=== PATIENT | female | born 1950 | race Caucasian/White ===

== ENCOUNTER 2019-02-26 20:39 | Inpatient (IN) | payer OTHER, MEDICARE ==
[~2019-02-26] VITALS: Ht 160 cm; Wt 61.2 kg
[2019-02-26 20:39] VITALS: BP_SYST 153
--- NOTE | 2019-02-26 20:40 | NUR ---
Placed in room 2 . Placed on hall monitor, blood pressure machine and pulse oximeter. To gown for exam. Side rails up.
--- NOTE | 2019-02-26 20:41 | NUR ---
Pt started on O2 via NC 2L. Tolerated well. Will cont. to monitor.
--- NOTE | 2019-02-26 20:45 | NUR ---
Pt came to the ED for 5 day hx of cough and 2 day history of SOB. Reports pt used predisone and inhaler at home with no relief. Denies n/v/d or fever. No other complaints/injuries noted. Will cont. to piero.
--- NOTE | 2019-02-26 20:52 | NUR ---
ER at bedside examining patient.
[2019-02-26] MEDS ORDERED: ALBUTEROL SULFATE 0.083% 2.5 MG/3 ML VIAL.NEB INH ONE ×2 (21:00→23:30)
[2019-02-26] MEDS ORDERED: LEVOFLOXACIN 500 MG/D5W 100 ML IV ONE (21:00)
[2019-02-26] MEDS ORDERED: IPRATROPIUM BROM 0.5 MG/2.5 ML VIAL.NEB (ATROVENT) INH ONE ×2 (21:00→23:30)
[2019-02-26] MEDS ORDERED: methylPREDNISolone SOD SUCC/PF 62.5 MG/ML VIAL IVP ONE (21:00)
[2019-02-26 21:27] LABS: BASOPHILS % (AUTO) 0.3 % (0.0-2.0); EOSINOPHILS % (AUTO) 0.1 % (0.0-4.0); HEMATOCRIT 43.5 % (36-48); HEMOGLOBIN 14.7 g/dL (12.0-16.0); LYMPHOCYTES % (AUTO) 9.3 % (20.5-51.5); MEAN CORPUSCULAR HEMOGLOBIN 34 pg (27-31); MEAN CORPUSCULAR HGB CONC 34 % (32-36); MEAN CORPUSCULAR VOLUME 102 fL (79.0-98.0); MONOCYTES # (AUTO) 0.8 K/uL (0.0-1.0); MONOCYTES % (AUTO) 7.4 % (1.7-9.3); NEUTROPHILS # (AUTO) 9.2 K/uL (1.8-7.7); NEUTROPHILS % (AUTO) 82.9 % (40.0-70.0); PLATELET COUNT (AUTO) 291 K/uL (130-430); RED BLOOD CELL COUNT(AUTO) 4.28 MIL/uL (4.2-6.2); RED CELL DISTRIBUTION WIDTH 13.9 % (9.0-15.0); WHITE BLOOD COUNT (AUTO) 11.1 K/uL (4.8-10.8)
[2019-02-26 21:36] LABS: ANION GAP 8 (5-15); CALCIUM 8.8 mg/dL (8.4-11.0); CHLORIDE 99 mmol/L (98-107); CREATININE 1.15 mg/dL (0.55-1.30); GFR AFRICAN AMERICAN 60 mL/min (>90); GLUCOSE 105 mg/dL (70-99); POTASSIUM 3.4 mmol/L (3.5-5.1); SODIUM SERUM 136 mmol/L (136-145); UREA NITROGEN, BLOOD 18 mg/dL (8-21)
[2019-02-26 21:41] LABS: PROTHROMBIN TIME 9.9 SECS (9.5-12.5)
[2019-02-26 21:45] LABS: ALANINE AMINOTRANSFERASE 38 U/L (12-78); ALBUMIN 3.4 g/dL (3.4-4.8); ASPARTATE AMINOTRANSFERASE 34 U/L (10-37); TOTAL BILIRUBIN 0.3 mg/dL (0.0-1.0)
--- NOTE | 2019-02-26 22:00 | NUR ---
Pt states, "I feel a lot better, however I feel like there's something stuck in my throat." O2 saturation is 96%. RR is 18. No signs of acute distress. Will cont. to monitor.
--- NOTE | 2019-02-26 23:29 | NUR ---
Pt states that she feels like shes having a hard time breathing. States she would like another breathing TX.
[2019-02-26] MEDS ORDERED: BUDE6HFA INH (23:43)
[2019-02-26] MEDS ORDERED: OXYM15MI9 NS (23:43)
[2019-02-26] MEDS ORDERED: P-EP-92 PO (23:43)
[2019-02-26] MEDS ORDERED: IPRA4AER INH (23:43)
--- NOTE | 2019-02-26 23:43 | NUR ---
Medication reconciliation completed with information provided by patient. Any prior medication reconciliation on file was reviewed and corrected.
--- NOTE | 2019-02-26 23:50 | NUR ---
RT at bedside for breathing TX. Tolerated well. Will cont. to monitor.
[2019-02-27] MEDS ORDERED: LevALBUTEROL HCL 1.25 MG/0.5 ML *CONC.* VIAL.NEB (XOPENEX CONC.) INH SCH
--- NOTE | 2019-02-27 00:16 | NUR ---
Patient will be admitted to care of Dr. Salinas. Admitted to Tele unit. Will go to room 103B. Belongings list completed. Complete and up to date summary report printed. SBAR report to be given at bedside with opportunity for questions.
--- NOTE | 2019-02-27 00:30 | NUR ---
ADMISSION NOTE Received patient from ER via gurney. Patient admitted with diagnosis of DIFFICULTY BREATHING. Patient is awake, alert, oriented X 4. Patient oriented to hospital room, call light, toileting, pain management and safety-teach back done. Patient informed that RAVI (RAFFAELE) will be HER nurse and that their room number is 103B. Personal belongings checked and Belongings List documented. Call light within reach.
--- NOTE | 2019-02-27 00:30 | NUR ---
Transfer to Tele via ACLS protocol. Licensed nurse present. IV present no signs or symptoms of infiltration.
--- NOTE | 2019-02-27 00:45 | NUR ---
ADMITTED A 68 YEAR OLD FEMALE WHO WAS BROUGHT IN FROM THE EMERGENCY ROOM VIA GURNEY WITH ADMITTING DIAGNOSES OF COPD EXACERBATION,PNEUMONIA UNDER THE SERVICE OF . PT.IS ALERT,ORIENTED. AFEBRILE, NOT IN ACUTE DITRESS. DENIES PAIN BUT VERBALIZED STILL SHORT OF BREATH. BREATHING EQUAL AND MILDLY LABORED. (+) SUPRACLAVICULAR RETRACTIONS. (+) WHEEZING BILATERALLY. SINUS TACHYCARDIA @ 120/MINUTE ON THE MONITOR. ZOSYN IVPB ORDERED BUT ALLERGIC TO PCN. PT.ALSO IS REQUESTING FOR COUGH MEDICATION. WILL CALL ATTENDING MD. WILL CLOSELY MONITOR. NEEDS ATTENDED.
[2019-02-27 00:47] VITALS: BP_SYST 144
[2019-02-27] MEDS: KCL 20 mEq in D5/0.45NS 1000mL 1,000 ML IV SCH ×3 (01:07→22:32)
--- NOTE | 2019-02-27 01:07 | NUR ---
IV FLUID D5 1/2 NS + KCL 20 MEQ AT 75 ML/HR. STARTED.
[2019-02-27] MEDS ORDERED: KCL 20 mEq in D5/0.45NS 1000mL 1,000 ML IV ONE (01:15)
[2019-02-27 01:29] LABS: BILIRUBIN,URINE NEGATIVE (NEGATIVE); BLOOD, URINE 1+ (NEGATIVE); CLARITY/URINE CLEAR (CLEAR); COLOR,URINE YELLOW (YELLOW); GLUCOSE,URINE NEGATIVE (NEGATIVE); KETONES,URINE NEGATIVE (NEGATIVE); LEUKOCYTE ESTERASE ,URINE NEGATIVE (NEGATIVE); NITRITE, URINE NEGATIVE (NEGATIVE); PROTEIN URINE 1+ (NEGATIVE); UROBILINOGEN,URINE 0.2 (0.2-1.0)
--- NOTE | 2019-02-27 01:34 | NUR ---
PAGED PAGED DR. GRIFFIN FOR ORDERS VIA PAGER ([phone])
[2019-02-27 01:37] VITALS: BP_SYST 144
[2019-02-27 01:55] LABS: BACTERIA,URINE FEW /HPF (None Seen); WBC,URINE 0-3 /HPF (0-3)
--- NOTE | 2019-02-27 02:00 | NUR ---
PAGED x2 SECOND PAGE SENT TO DR. GRIFFIN
--- NOTE | 2019-02-27 03:01 | NUR ---
PAGED x3 THIRD PAGE SENT TO DR. GRIFFIN
--- NOTE | 2019-02-27 03:48 | NUR ---
PT. AGAIN COMPLAINED OF SOB,AND NAGGING COUGH. CONTACTED VIA PAGER. AWAITING CALL BACK FROM .
[2019-02-27] MEDS: methylPREDNISolone SOD SUCC/PF 62.5 MG/ML VIAL IVP SCH ×4 (05:57→17:40)
--- NOTE | 2019-02-27 05:57 | NUR ---
AWAKE, VERBALIZED IMPROVED SOB. STILL NO CALL BACK FROM . DUE MEDICATION GIVEN.
[2019-02-27] MEDS ORDERED: PIPERACILLIN/TAZO 3.375 GM in NS 50 ML IV SCH ×3 (06:00)
--- NOTE | 2019-02-27 07:07 | NUR ---
ENDORSED CARE TO PAIGE SHIN STABLE.
--- NOTE | 2019-02-27 07:15 | NUR ---
OPENING NOTE PT AWAKE AND ALERT IN BED. NO ACUTE DISTRESS NOTED. NASAL CANNULA RUNNING ORDERED AT 2L. NO REDNESS AT NASAL CANNULA SITE. TOLERATING WELL. O2 AT 96%. ALL NEEDS MET. CALL LIGHT IN REACH. FALL AND ASPIRATION PRECAUTIONS IN PLACE. CONTINUE TO MONITOR.
[2019-02-27 07:47] LABS: BASOPHILS % (AUTO) 0.3 % (0.0-2.0); HEMATOCRIT 42.1 % (36-48); HEMOGLOBIN 14.1 g/dL (12.0-16.0); LYMPHOCYTES # (AUTO) 0.4 K/uL (1.0-5.5); LYMPHOCYTES % (AUTO) 3.2 % (20.5-51.5); MEAN CORPUSCULAR HEMOGLOBIN 34 pg (27-31); MEAN CORPUSCULAR HGB CONC 33 % (32-36); MEAN CORPUSCULAR VOLUME 103 fL (79.0-98.0); MONOCYTES # (AUTO) 0.2 K/uL (0.0-1.0); NEUTROPHILS # (AUTO) 11.5 K/uL (1.8-7.7); NEUTROPHILS % (AUTO) 94.5 % (40.0-70.0); PLATELET COUNT (AUTO) 280 K/uL (130-430); RED CELL DISTRIBUTION WIDTH 13.8 % (9.0-15.0); WHITE BLOOD COUNT (AUTO) 12.2 K/uL (4.8-10.8)
[2019-02-27 08:00] VITALS: BP_SYST 150
[2019-02-27 09:05] LABS: ALBUMIN 3.3 g/dL (3.4-4.8); CREATININE 1.17 mg/dL (0.55-1.30); POTASSIUM 3.7 mmol/L (3.5-5.1); TOTAL BILIRUBIN 0.2 mg/dL (0.0-1.0)
--- NOTE | 2019-02-27 09:40 | NUR ---
SEEN BY DR. GRIFFIN AT BEDSIDE.
[2019-02-27] MEDS ORDERED: P-EPHED SUL/LORATADINE TAB.SR.12H PO ONE (09:45)
--- NOTE | 2019-02-27 09:49 | NUR ---
RT AT BEDSIDE. PT RECEIVING BREATHING TREATMENT.
[2019-02-27] MEDS: LevALBUTEROL HCL 1.25 MG/0.5 ML *CONC.* VIAL.NEB (XOPENEX CONC.) INH PRN (10:22)
[2019-02-27] MEDS: ALBUTEROL SULFATE 0.083% 2.5 MG/3 ML VIAL.NEB INH SCH ×4 (11:00→23:20)
[2019-02-27 11:09] VITALS: BP_SYST 129
--- NOTE | 2019-02-27 12:04 | NUR ---
ROUTINE MEDICATIONS MEDS ADMINISTERED ORDERED PER MD. EDUCATION GIVEN. TOLERATED WELL. NO ACUTE DISTRESS NOTED. ALL NEEDS MET. CALL LIGHT IN REACH. FALL AND ASPIRATION PRECAUTIONS IN PLACE. CONTINUE TO MONITOR.
--- NOTE | 2019-02-27 14:00 | NUR ---
ROUNDS PT AWAKE AND ALERT IN BED. NO ACUTE DISTRESS NOTED. ALL NEEDS MET. CALL LIGHT IN REACH. FALL AND ASPIRATION PRECAUTIONS IN PLACE. CONTINUE TO MONITOR.
[2019-02-27 15:35] VITALS: BP_SYST 135
--- NOTE | 2019-02-27 17:44 | NUR ---
ROUTINE MEDS ROUTINE MEDS ADMINISTERED ORDERED BY MD. EDUCATION GIVEN. TOLERATED WELL. NO ACUTE DISTRESS NOTED. FALL AND ASPIRATION PRECAUTIONS IN PLACE. ALL NEEDS MET. CALL LIGHT IN REACH. CONTINUE TO MONITOR.
[2019-02-27] MEDS ORDERED: IPRATROPIUM/ALBUTEROL SULFATE 3 ML AMPUL.NEB (DUONEB) INH SCH (19:00)
--- NOTE | 2019-02-27 19:01 | NUR ---
CLOSING NOTE PT AWAKE AND ALERT IN BED. NO ACUTE DISTRESS NOTED. NONLABORED BREATHING NOTED. NASAL CANULA INTACT, RUNNING AT 2L ORDERED. NO REDNESS NOTED AROUND NASAL CANNULA. IV LINE INTACT AND PATENT, NO SIGNS OF INFILTRATION. FLUIDS RUNNING ORDERED PER MD. TOLERATING WELL. BED IN LOWEST AND LOCKED POSITION. ALL NEEDS MET. CALL LIGHT IN REACH. FALL AND ASPIRATION PRECAUTIONS IN PLACE. WILL ENDORSE TO NOC NURSE.
--- NOTE | 2019-02-27 19:30 | NUR ---
Opening Note Received patient awake, AOx4, resting in bed. No s/sx of distress. Presently on 2L NC. IVF infusing via IV RAC. Bed is locked in lowest position, side rails up 2x and instructed on use of call light. She refused bed alarm; stating she gets up frequently and sits in bed, uses bed side commode. Updated board and reviewed plan of care.
[2019-02-27] MEDS: BUDESONIDE 0.5 MG/2 ML AMPUL.NEB INH SCH (19:50)
[2019-02-27 20:00] VITALS: BP_SYST 152
--- NOTE | 2019-02-27 20:52 | NUR ---
Elfego Coy s/w Treasure
[2019-02-27] MEDS ORDERED: IPRATROPIUM/ALBUTEROL SULFATE 120 PUFFS/4 GM INH INH SCH (21:00)
[2019-02-27] MEDS ORDERED: BUDESONIDE/FORMOTEROL 160-4.5 mCg, 6 GM INHALER INH SCH (21:00)
--- NOTE | 2019-02-27 21:32 | NUR ---
Second call for Dr. Coy s/w Autumn
--- NOTE | 2019-02-27 21:35 | NUR ---
Dr. Coy s/w Dr. Coy and informed patient is requesting a sleeping pill, he did not provide order d/t patient diagnosis. He did place order for pulmonary consult w/ Dr. Vasquez.
[2019-02-27] MEDS: LEVOFLOXACIN 250 MG/D5W 50 ML IV SCH (22:31)
[2019-02-27] MEDS: guaiFENesin/DEXTROMETHORPHAN 10 ML UDC PO PRN (22:31)
[2019-02-27] MEDS: P-EPHED SUL/LORATADINE TAB.SR.12H PO SCH (22:31)
[2019-02-27] MEDS: ENOXAPARIN SODIUM 40 MG/0.4 ML SYRINGE SUBCUT SCH (22:34)
[2019-02-28 00:15] VITALS: BP_SYST 139
[2019-02-28] MEDS: methylPREDNISolone SOD SUCC/PF 62.5 MG/ML VIAL IVP SCH ×4 (00:30→17:43)
--- NOTE | 2019-02-28 00:42 | NUR ---
CONSULTATION PAGED/CALLED Reason for Consultation: COPD, PNA Person Who was Notified: MAHENDRA Consulting Physician: DR. BOWIE Financial Analyst Accountant Specialty: PULMONARY Ordering Physician: DR. ELKINS
[2019-02-28] MEDS: ACETAMINOPHEN 325 MG TABLET PO PRN ×3 (01:55→21:00)
[2019-02-28] MEDS: ALBUTEROL SULFATE 0.083% 2.5 MG/3 ML VIAL.NEB INH SCH ×6 (02:00→23:27)
[2019-02-28] MEDS: guaiFENesin/DEXTROMETHORPHAN 10 ML UDC PO PRN ×3 (03:28→20:59)
--- NOTE | 2019-02-28 03:31 | NUR ---
Coughing Patient is awake and coughing. She was offered Robitussin and agreed to take dose. Will continue to monitor.
--- NOTE | 2019-02-28 06:45 | NUR ---
closing note Patient given due medication, solumedrol. Needs met throughout shift, Presently stable, will endorse care to incoming shift.
--- NOTE | 2019-02-28 07:10 | NUR ---
Opening Note Received bedside report from endorsing RN for continuation of care. Received patient awake in bed, denies any SOB or pain. No signs or symptoms of acute distress noted. Bed locked in lowest position, bed alarm on, and call light within reach. Education provided on use of call light and patient verbalized understanding. Fall and safety precautions in place.
[2019-02-28] MEDS: BUDESONIDE 0.5 MG/2 ML AMPUL.NEB INH SCH ×2 (07:13→19:42)
[2019-02-28 08:00] VITALS: BP_SYST 145
[2019-02-28 08:03] LABS: BASOPHILS % (AUTO) 0.2 % (0.0-2.0); HEMATOCRIT 41.6 % (36-48); HEMOGLOBIN 13.9 g/dL (12.0-16.0); LYMPHOCYTES % (AUTO) 7.5 % (20.5-51.5); MEAN CORPUSCULAR HEMOGLOBIN 34 pg (27-31); MEAN CORPUSCULAR HGB CONC 34 % (32-36); MEAN CORPUSCULAR VOLUME 102 fL (79.0-98.0); MONOCYTES # (AUTO) 0.9 K/uL (0.0-1.0); MONOCYTES % (AUTO) 6.7 % (1.7-9.3); NEUTROPHILS # (AUTO) 11.2 K/uL (1.8-7.7); NEUTROPHILS % (AUTO) 85.6 % (40.0-70.0); PLATELET COUNT (AUTO) 293 K/uL (130-430); RED BLOOD CELL COUNT(AUTO) 4.07 MIL/uL (4.2-6.2); RED CELL DISTRIBUTION WIDTH 14.1 % (9.0-15.0); WHITE BLOOD COUNT (AUTO) 13.1 K/uL (4.8-10.8)
[2019-02-28 08:32] LABS: CALCIUM 8.1 mg/dL (8.4-11.0); CREATININE 0.97 mg/dL (0.55-1.30); POTASSIUM 3.7 mmol/L (3.5-5.1)
[2019-02-28] MEDS: P-EPHED SUL/LORATADINE TAB.SR.12H PO SCH ×2 (10:05→20:57)
--- NOTE | 2019-02-28 10:15 | NUR ---
Patient sitting up in bed, denies any pain. No signs or symptoms of acute distress noted.
[2019-02-28] MEDS ORDERED: P-EPHED SUL/LORATADINE TAB.SR.12H PO ONE (10:16)
[2019-02-28 11:55] VITALS: BP_SYST 147
--- NOTE | 2019-02-28 12:28 | NUR ---
Dietitian Recommendations *Recommend Regular diet w/ Ensure Enlive TID. ONS will provide additional 1050 kcal and 60 gm protein daily. *Encourage pt to increase PO intake. Please see Nutritional Assessment for details. OSCAR, KORY
--- NOTE | 2019-02-28 12:30 | NUR ---
Patient awake and resting in bed, watching TV. Patient denies any SOB or pain. No signs or symptoms of acute distress noted.
--- NOTE | 2019-02-28 15:20 | NUR ---
Dr. Coy in to see patient. New orders received.
[2019-02-28 16:00] VITALS: BP_SYST 157
[2019-02-28 17:07] VITALS: BP_SYST 157
--- NOTE | 2019-02-28 18:14 | NUR ---
Patient resting in bed, states she does not feel like eating dinner. Patient denies any SOB or pain. No signs or symptoms of acute distress noted.
--- NOTE | 2019-02-28 19:20 | NUR ---
Endorsement Endorsed bedside report to oncoming RN using SBAR approach for continuation of care.
[2019-02-28 20:00] VITALS: BP_SYST 104
[2019-02-28] MEDS: LEVOFLOXACIN 250 MG/D5W 50 ML IV SCH (20:57)
[2019-02-28] MEDS: ENOXAPARIN SODIUM 40 MG/0.4 ML SYRINGE SUBCUT SCH (20:59)
[2019-03-01] MEDS: methylPREDNISolone SOD SUCC/PF 62.5 MG/ML VIAL IVP SCH ×4 (02:25→22:41)
[2019-03-01] MEDS: ACETAMINOPHEN 325 MG TABLET PO PRN (02:30)
[2019-03-01] MEDS: guaiFENesin/DEXTROMETHORPHAN 10 ML UDC PO PRN (02:30)
--- NOTE | 2019-03-01 03:10 | NUR ---
PT EXPERIENCING SOME ANXIETY. WENT OVER PURSE LIP BREATHING W/ PT. Addendum: 03/01/19 at 0420 by Charlotte Vu RT Amended: Links added.
[2019-03-01] MEDS: ALBUTEROL SULFATE 0.083% 2.5 MG/3 ML VIAL.NEB INH SCH ×7 (03:12→23:35)
--- NOTE | 2019-03-01 06:12 | NUR ---
PATIENT IN BED. NO ACUTE DISTRESS NOTED. TURNED REPOSITIONED Q2. WILL CONTINUE TO MONITOR.
[2019-03-01] MEDS: BUDESONIDE 0.5 MG/2 ML AMPUL.NEB INH SCH ×2 (06:54→19:47)
[2019-03-01 07:32] LABS: BASOPHILS % (AUTO) 0.1 % (0.0-2.0); HEMATOCRIT 42.3 % (36-48); LYMPHOCYTES % (AUTO) 5.9 % (20.5-51.5); MEAN CORPUSCULAR HEMOGLOBIN 34 pg (27-31); MEAN CORPUSCULAR HGB CONC 33 % (32-36); MEAN CORPUSCULAR VOLUME 102 fL (79.0-98.0); MONOCYTES # (AUTO) 1.2 K/uL (0.0-1.0); MONOCYTES % (AUTO) 7.4 % (1.7-9.3); NEUTROPHILS # (AUTO) 14.3 K/uL (1.8-7.7); NEUTROPHILS % (AUTO) 86.6 % (40.0-70.0); PLATELET COUNT (AUTO) 358 K/uL (130-430); RED BLOOD CELL COUNT(AUTO) 4.13 MIL/uL (4.2-6.2); WHITE BLOOD COUNT (AUTO) 16.5 K/uL (4.8-10.8)
[2019-03-01 08:06] LABS: CALCIUM 8.5 mg/dL (8.4-11.0); CREATININE 0.85 mg/dL (0.55-1.30); POTASSIUM 3.8 mmol/L (3.5-5.1)
[2019-03-01] MEDS ORDERED: ONDANSETRON HCL 4 MG/2 ML VIAL IVP PRN (08:15)
[2019-03-01] MEDS ORDERED: ONDANSETRON HCL 4 MG/2 ML VIAL ONE (08:27)
--- NOTE | 2019-03-01 08:55 | NUR ---
INITIAL ROUNDS Received pt AAOx4, no s/s resp distress, no c/o pain, pt did c/o nausea. MD called and order given for Zofran-Once new IV placed Zofran given. Old IV removed due to leaking. Plan of care for the day reviewed with pt-pt verbalized her understanding. Cool washcloth placed to pt's head, light turned down low to help promote rest. Pain management, disease process, skin and safety discussed-teach back done. Call light within reach.
[2019-03-01 09:00] VITALS: BP_SYST 150
[2019-03-01] MEDS: P-EPHED SUL/LORATADINE TAB.SR.12H PO SCH ×2 (10:14→22:00)
--- NOTE | 2019-03-01 14:20 | NUR ---
ROUNDS Pt sitting up in bed listening to music on her phone, no c/o pain or discomfort, no c/o shortness of breath. Pt given towels per request. Pt encouraged to try to relax and use her pursed lip breathing when she gets anxious-teach back done. Call light within reach.
--- NOTE | 2019-03-01 14:25 | NUR ---
Vocational Rehab Consultant: met pt, received a referral and also conduct a dcpa. FEED MILL OPERATOR met with pt. who was pleasant and struggled a little to talk and breath easily. pt. was on oxygen. She stated she was worried when she is discharged if she will need oxygen at home. She stated she feels anxious when the Rn.s take her off the oxygen as it has helped her with her breathing. She was showing some difficulty as she participated in this interview. She feels she may need oxyegen at home and also stated might she need home health at home in the RV.Pt. wants to return to her home. She lives in an for the past year with a friend at [facility] near [facility]. Pt. denied feeling suicidal. She had family support. Both sons reside in [place]. Pt. stated she did not need any services. She just wants to get well so she can return to her home. FEED MILL OPERATOR will remain available as needed.
[2019-03-01 16:35] VITALS: BP_SYST 125
--- NOTE | 2019-03-01 18:40 | NUR ---
CLOSING NOTE Pt resting quietly in bed with no s/s resp distress, no c/o pain or discomfort. Pt stated she felt better tonight. Needs met, call light within reach.
[2019-03-01 20:00] VITALS: BP_SYST 123
[2019-03-01] MEDS: LEVOFLOXACIN 250 MG/D5W 50 ML IV SCH (21:00)
--- NOTE | 2019-03-01 21:00 | NUR ---
pt recieved awake alert and oriented x3 . pt congested and coughing productively / pt on levaquine ivpb , pt gets respitory treatment . will continue to monitor pt .
[2019-03-01] MEDS: ENOXAPARIN SODIUM 40 MG/0.4 ML SYRINGE SUBCUT SCH (22:00)
[2019-03-02] VITALS: BP_SYST 125; BP_SYST 130
[2019-03-02] MEDS: ALBUTEROL SULFATE 0.083% 2.5 MG/3 ML VIAL.NEB INH SCH ×6 (03:00→23:00)
--- NOTE | 2019-03-02 05:00 | NUR ---
pt slept very well . still congested . pt monitored continousily ,
[2019-03-02] MEDS: methylPREDNISolone SOD SUCC/PF 62.5 MG/ML VIAL IVP SCH (06:07)
[2019-03-02] MEDS: BUDESONIDE 0.5 MG/2 ML AMPUL.NEB INH SCH ×2 (06:23→19:57)
--- NOTE | 2019-03-02 07:30 | NUR ---
OPENING NOTES: RECEIVED PATIENT FROM ACCOUNT AUDITOR NURSE. PATIENT IS AWAKE AND ALERT x4 LAYING DOWN IN BED. PATIENT DENIES ANY PAIN AT THE MOMENT. PATIENT IS TOLERATING OXYGEN AT 2 L NASAL CANNULA WITH NO SIGNS OF DISTRESS OR SHORTNESS OF BREATH NOTED. PATIENT DOES HAVE A PRODUCTIVE COUGH AND CONTAINERS WERE GIVEN TO PATIENT TO SPIT IN. IV SITE IS PATENT WITH NO SIGNS OF INFILTRATION NOTED. PATIENT IN STABLE CONDITION. SAFETY, FALL AND ASPIRATION PRECAUTIONS ARE IN PLACE. BED LOCKED IN LOWEST POSITION WITH CALL LIGHT IN REACH. WILL CONTINUE TO MONITOR PATIENT FOR ANY CHANGES.
[2019-03-02] MEDS: P-EPHED SUL/LORATADINE TAB.SR.12H PO SCH ×2 (08:10→19:50)
[2019-03-02 08:29] VITALS: BP_SYST 144
--- NOTE | 2019-03-02 10:10 | NUR ---
RN ROUNDS: PATIENT IS AWAKE AND ALERT x4 LAYING DOWN IN BED. NO SIGNS OF DISTRESS OR SHORTNESS OF BREATH NOTED. PATIENT IN STABLE CONDITION. WILL CONTINUE TO MONITOR PATIENT FOR ANY CHANGES.
[2019-03-02 11:00] VITALS: BP_SYST 144
--- NOTE | 2019-03-02 12:03 | NUR ---
RN ROUNDS: PATIENT IS AWAKE AND ALERT x4 LAYING DOWN IN BED. PATIENT DENIES ANY PAIN AT THE MOMENT. NO SIGNS OF DISTRESS OR SHORTNESS OF BREATH NOTED. PATIENT IN STABLE CONDITION. WILL CONTINUE TO MONITOR PATIENT FOR ANY CHANGES.
[2019-03-02 12:05] VITALS: BP_SYST 149
--- NOTE | 2019-03-02 14:16 | NUR ---
RN ROUNDS: PATIENT IS AWAKE AND ALERT x4 SITTING UP IN BED. PATIENT DENIES ANY PAIN AT THE MOMENT. PATIENT IS TOLERATING OXYGEN ON 2 L NASAL CANNULA WITH NO SIGNS OF DISTRESS OR SHORTNESS OF BREATH. IV SITE IS PATENT WITH NO SIGNS OF INFILTRATION. PATIENT IN STABLE CONDITION. WILL CONTINUE TO MONITOR PATIENT FOR ANY CHANGES.
[2019-03-02 14:24] LABS: BASOPHILS % (AUTO) 0.1 % (0.0-2.0); HEMATOCRIT 42.3 % (36-48); HEMOGLOBIN 14.3 g/dL (12.0-16.0); LYMPHOCYTES # (AUTO) 0.9 K/uL (1.0-5.5); LYMPHOCYTES % (AUTO) 5.5 % (20.5-51.5); MEAN CORPUSCULAR HEMOGLOBIN 34 pg (27-31); MEAN CORPUSCULAR HGB CONC 34 % (32-36); MEAN CORPUSCULAR VOLUME 102 fL (79.0-98.0); MONOCYTES # (AUTO) 1.4 K/uL (0.0-1.0); MONOCYTES % (AUTO) 8.5 % (1.7-9.3); NEUTROPHILS # (AUTO) 14.1 K/uL (1.8-7.7); NEUTROPHILS % (AUTO) 85.9 % (40.0-70.0); PLATELET COUNT (AUTO) 382 K/uL (130-430); RED BLOOD CELL COUNT(AUTO) 4.16 MIL/uL (4.2-6.2); RED CELL DISTRIBUTION WIDTH 13.6 % (9.0-15.0); WHITE BLOOD COUNT (AUTO) 16.4 K/uL (4.8-10.8)
--- NOTE | 2019-03-02 14:50 | NUR ---
Dr. Salinas was paged regarding lab results.
[2019-03-02 16:00] VITALS: BP_SYST 156
--- NOTE | 2019-03-02 18:46 | NUR ---
CLOSING NOTES: PATIENT IS AWAKE AND ALERT x4 LAYING DOWN IN BED. PATIENT DENIES ANY PAIN AT THE MOMENT. PATIENT IS TOLERATING OXYGEN AT 2 L NASAL CANNULA WITH NO SIGNS OF DISTRESS NOTED. PATIENT DOES BECOME SHORT OF BREATH WHEN SPEAKING FOR A LONG PERIOD OF TIME. IV SITE IS PATENT WITH NO SIGNS OF INFILTRATION NOTED. PATIENT IN STABLE CONDITION. SAFETY, FALL AND ASPIRATION PRECAUTIONS REMAINED IN PLACE THROUGHOUT THE SHIFT. BED LOCKED IN LOWEST POSITION WITH CALL LIGHT IN REACH. WILL ENDORSE PATIENT CARE TO ONCOMING PRODUCT MARKETING ENGINEER NURSE.
[2019-03-02] MEDS: PREDNISONE 20 MG TABLET PO SCH (19:50)
[2019-03-02] MEDS: LEVOFLOXACIN 250 MG/D5W 50 ML IV SCH (19:50)
[2019-03-02] MEDS: ENOXAPARIN SODIUM 40 MG/0.4 ML SYRINGE SUBCUT SCH (19:51)
[2019-03-02 20:00] VITALS: BP_SYST 159
[2019-03-03 01:01] VITALS: BP_SYST 151
[2019-03-03] MEDS: ALBUTEROL SULFATE 0.083% 2.5 MG/3 ML VIAL.NEB INH SCH ×3 (03:00→11:22)
[2019-03-03] MEDS: LevALBUTEROL HCL 1.25 MG/0.5 ML *CONC.* VIAL.NEB (XOPENEX CONC.) INH PRN (05:43)
--- NOTE | 2019-03-03 06:16 | NUR ---
Patient in bed. No acute distress noted. IV place in the RAC 22G. Will continue to monitor.
[2019-03-03 07:22] LABS: BASOPHILS % (AUTO) 0.1 % (0.0-2.0); HEMATOCRIT 42.7 % (36-48); HEMOGLOBIN 14.1 g/dL (12.0-16.0); LYMPHOCYTES # (AUTO) 1.6 K/uL (1.0-5.5); LYMPHOCYTES % (AUTO) 10.2 % (20.5-51.5); MEAN CORPUSCULAR HEMOGLOBIN 34 pg (27-31); MEAN CORPUSCULAR HGB CONC 33 % (32-36); MEAN CORPUSCULAR VOLUME 102 fL (79.0-98.0); MONOCYTES # (AUTO) 1.9 K/uL (0.0-1.0); MONOCYTES % (AUTO) 12.3 % (1.7-9.3); NEUTROPHILS # (AUTO) 11.8 K/uL (1.8-7.7); NEUTROPHILS % (AUTO) 77.4 % (40.0-70.0); PLATELET COUNT (AUTO) 405 K/uL (130-430); RED BLOOD CELL COUNT(AUTO) 4.16 MIL/uL (4.2-6.2); RED CELL DISTRIBUTION WIDTH 13.8 % (9.0-15.0); WHITE BLOOD COUNT (AUTO) 15.2 K/uL (4.8-10.8)
--- NOTE | 2019-03-03 07:45 | NUR ---
OPENING NOTES: RECEIVED PATIENT FROM CAFETERIA OR LUNCHROOM CHECKER NURSE. PATIENT IS AWAKE AND ALERT x4 LAYING DOWN IN BED. PATIENT DENIES ANY PAIN AT THE MOMENT. PATIENT IS TOLERATING OXYGEN AT 2 L NASAL CANNULA WITH NO SIGNS OF DISTRESS OR SHORTNESS OF BREATH NOTED. PATIENT CONTINUES TO HAVE A PRODUCTIVE COUGH AND LOSES HER BREATH WHILE TALKING. IV SITE IS PATENT WITH NO SIGNS OF INFILTRATION NOTED. PATIENT IN STABLE CONDITION. SAFETY, FALL AND ASPIRATION PRECAUTIONS ARE IN PLACE. BED LOCKED IN LOWEST POSITION WITH CALL LIGHT IN REACH. WILL CONTINUE TO MONITOR PATIENT FOR ANY CHANGES.
[2019-03-03] MEDS: BUDESONIDE 0.5 MG/2 ML AMPUL.NEB INH SCH (07:57)
[2019-03-03 08:03] VITALS: BP_SYST 151
[2019-03-03] MEDS: P-EPHED SUL/LORATADINE TAB.SR.12H PO SCH (08:04)
[2019-03-03] MEDS: PREDNISONE 20 MG TABLET PO SCH (08:15)
[2019-03-03] MEDS: ACETAMINOPHEN 325 MG TABLET PO PRN (08:43)
[2019-03-03] MEDS: guaiFENesin/DEXTROMETHORPHAN 10 ML UDC PO PRN (08:49)
[2019-03-03 11:14] VITALS: BP_SYST 149
--- NOTE | 2019-03-03 11:45 | NUR ---
MD ROUNDS: SPOKE WITH DR. MENDIETA REGARDING PATIENT WANTING TO SWITCH HER BREATHING TREATMENTS. OKAYED. NEW ORDERS GIVEN.
[2019-03-03] MEDS ORDERED: ALBUTEROL SULFATE 0.083% 2.5 MG/3 ML VIAL.NEB INH PRN (12:00)
--- NOTE | 2019-03-03 12:06 | NUR ---
RN ROUNDS: PATIENT IS ASLEEP LAYING DOWN IN BED. PATIENT IS TOLERATING OXYGEN ON 2 L NASAL CANNULA WITH NO SIGNS OF DISTRESS OR SHORTNESS OF BREATH NOTED. PATIENT IN STABLE CONDITION. WILL CONTINUE TO MONITOR PATIENT FOR ANY CHANGES.
--- NOTE | 2019-03-03 14:37 | NUR ---
Discharge Planning: LUIS faxed pt order for Nebulizer to [facility] (f [phone] p [phone]), LUIS also faxed DME form to Dr Salinas (f [phone]) to sign, also a copy left on chart with nurse. Addendum: 03/03/19 at 1533 by Earlene Butler DP LUIS contacted [facility] and faxed DME form for nebulizer to (f [phone]) for signature on order. Addendum: 03/03/19 at 1754 by Earlene Butler DP LUIS spoke to Dr Barry after she received the form from [facility], the doctor was concerned [facility] would not supply the meds for nebulizer. Per doctor her patients have experienced complication when taking the prescription to a pharmacy. Dr Barry request to send to [facility] for nebulizer, they would provide medication. [facility] contacted Maxi [phone] inquired if meds could be order and how quick, Maxi stated the first meds patient would need a written RX (by Dr Salinas) to take to pharmacy to get stated. [facility] would provide afterwards. BENP faxed order, sign Nebulizer request form and copy of written RX (f [phone] p [phone]) made Maxi aware patient has DC order and would like to leave. Maxi stated insurance needs to be verified, but took down patients information over phone and gave [facility] a phone number for "[employer]" for [facility]. Maxi stated have the patient call this number have patient call state her name and let the person know she is home and the nebulizer will be delivered. DCP SPOKE TO PATIENT GAVE HER THE INFORMATION INSTRUCTED PATIENT WHAT TO DO AND SAY.
[2019-03-03] MEDS ORDERED: LevALBUTEROL HCL 1.25 MG/0.5 ML *CONC.* VIAL.NEB (XOPENEX CONC.) INH SCH (15:00)
[2019-03-03 15:12] VITALS: BP_SYST 156
--- NOTE | 2019-03-03 16:07 | NUR ---
RN ROUNDS: PATIENT IS AWAKE AND ALERT x4 LAYING DOWN IN BED. PATIENT IS READY TO GO HOME. PAGED DR. GRIFFIN FOR DISCHARGE ORDERS. PATIENT IS TOLERATING OXYGEN ON 2 L NASAL CANNULA WITH NO SIGNS OF DISTRESS OR SHORTNESS OF BREATH NOTED. PATIENT DENIES ANY PAIN AT THE MOMENT. PATIENT IN STABLE CONDITION. WILL CONTINUE TO MONITOR PATIENT FOR ANY CHANGES.
--- NOTE | 2019-03-03 16:10 | NUR ---
Nutrition F/U RD reviewed pt's current EMR record including diet Hx, physician notes, nursing notes, pertinent labs/meds/procedures, care trends, and care activity. Admission Dx: COPD exacerbation PMH: asthma, tracheobronchitis per physician notes Current Diet Order/Nutrition Support: Regular, Ensure Enlive TID x3 days Subjective Info: Pt seen resting in bed at time of RD visit. Pt reported improved appetite, and requested snacks prior to dinner meal. RD notified [facility]NS staff to provide. Pt reported no BM since admission -- however, per EMR, BM x1 noted 03/02/19. Pt reported that she may go home tonight. Current % PO 42% average x10 meals Estimated Energy Expenditure (kcals/day) 1404-7067 kcal/day (30-35 kcal/kg IBW for COPD) Estimated Protein Required (g/day) 78-104 gm/day (1.5-2 gm/kg IBW for COPD) Estimated Fluid Required (l/day) 1.3 L/day (25ml/kg IBW for Geriatric maintenance) Problem/Etiology/Signs/Symptoms Increased protein-energy needs r/t metabolic demands AEB increased estimated protein and calorie needs. *ongoing Altered nutrition-related labs r/t medication interaction AEB elevated BG lab values, and solu-medrol. *ongoing Expected Outcomes/Goals Monitor appetite and PO intake w/ goal of pt meeting at least 75% of estimated nutritional needs, labs trending WNL, normal GI function, skin integrity/wt maintenance. Dietitian Recommendations *Recommend continuing regular diet w/ Ensure Enlive TID (ONS provides an additional 1050 kcal/day and 60 gm protein/day) *Encourage pt to increase PO intake Follow Up Moderate Risk: F/U in 3-5 days
--- NOTE | 2019-03-03 16:14 | NUR ---
Dietitian Recommendations *Recommend continuing regular diet w/ Ensure Enlive TID (ONS provides an additional 1050 kcal/day and 60 gm protein/day) *Encourage pt to increase PO intake LP, RD Please refer to Nutrition F/U for details.
--- NOTE | 2019-03-03 18:20 | NUR ---
D/C Patient: Patient given medication reconciliation form and D/C instructions. Exit Care provided. Patient verbalized understanding. MD discussed with patient the results and treatment provided. Ambulatory with steady gait for discharge to home. Patient in stable condition, ID band removed. IV catheter removed, intact and dressing applied, no active bleeding. Rx of medrol pack dose, doxycycline, humbid, lisinopril, and DuoNeb solution given. Patient educated on pain management. All belongings sent with patient.
[2019-03-03] MEDS ORDERED: DOXY-168 PO ×2 (19:03→19:04)
--- NOTE | 2019-03-04 08:15 | NUR ---
PHYSICAL THERAPY CO-SIGN The Physical Therapy Progress Notes documented by Integration Consultant have been reviewed. Reviewed/Co-Signed by: Michael Coates PT Documentation Done by: ELAINE PINEDA PTA Addendum: 03/04/19 at 0816 by Michael Coates PT Amended: Links added.
== END 2019-03-03 18:20 | disposition home or self-care (01) | DRG 202 ==
LOC: SED 20:39 → STU 23:57 → SMU 03-01 16:52
PROVIDERS: ADMIT Family Medicine; ATTEND Family Medicine
DX: J20.9 Acute bronchitis, unspecified (principal); J44.1 Chronic obstructive pulmonary disease with (acute) exacerbation; J45.901 Unspecified asthma with (acute) exacerbation; J44.0 Chronic obstructive pulmonary disease with (acute) lower respiratory infection; Z87.891 Personal history of nicotine dependence; Z88.0 Allergy status to penicillin; Z79.899 Other long term (current) drug therapy
CPT/HCPCS: 36415; 36600; 71045; 71250-TC; 80048; 80053; 81000-TC; 82803-TC; 82962; 83605; 83880; 84484; 85025; 85379; 85610-TC; 85730-TC; 87040-TC; 87086; 93005; 94640; 94760; 96365; 96375; 97116-GP; 97530-GP; 99285; G0378; J1650; J1956; J2405; J2543; J2930; J7512; J7612; J7613; J7626

== ENCOUNTER 2019-04-22 13:12 | Emergency (ER) | payer OTHER, MEDICARE ==
[~2019-04-22] VITALS: Ht 160 cm; Wt 54.4 kg
[~2019-04-22 13:12] MED LIST: BUDE6HFA INH; IPRA4AER INH; OXYM15MI9 NS; P-EP-92 PO
[2019-04-22 13:34] VITALS: BP_SYST 117
[2019-04-22] MEDS ORDERED: methylPREDNISolone SOD SUCC/PF 62.5 MG/ML VIAL IVP ONE (14:15)
[2019-04-22] MEDS ORDERED: EPINEPHrine 1 MG/ML AMP IM ONE (14:15)
[2019-04-22] MEDS ORDERED: DIPHENHYDRAMINE INJ 50 MG/ML VIAL IVP ONE (14:15)
[2019-04-22 14:38] LABS: BASOPHILS # (AUTO) 0.2 K/uL (0.0-0.2); BASOPHILS % (AUTO) 1.4 % (0.0-2.0); EOSINOPHILS # (AUTO) 0.3 K/uL (0.0-0.4); EOSINOPHILS % (AUTO) 2.3 % (0.0-4.0); HEMATOCRIT 36.3 % (36-48); HEMOGLOBIN 12.1 g/dL (12.0-16.0); LYMPHOCYTES # (AUTO) 2.4 K/uL (1.0-5.5); LYMPHOCYTES % (AUTO) 16.1 % (20.5-51.5); MEAN CORPUSCULAR HEMOGLOBIN 33 pg (27-31); MEAN CORPUSCULAR HGB CONC 33 % (32-36); MEAN CORPUSCULAR VOLUME 100 fL (79.0-98.0); MONOCYTES # (AUTO) 0.9 K/uL (0.0-1.0); MONOCYTES % (AUTO) 6.3 % (1.7-9.3); NEUTROPHILS # (AUTO) 10.9 K/uL (1.8-7.7); NEUTROPHILS % (AUTO) 73.9 % (40.0-70.0); RED BLOOD CELL COUNT(AUTO) 3.62 MIL/uL (4.2-6.2); RED CELL DISTRIBUTION WIDTH 14.1 % (9.0-15.0); WHITE BLOOD COUNT (AUTO) 14.7 K/uL (4.8-10.8)
[2019-04-22 14:53] LABS: CALCIUM 10.1 mg/dL (8.4-11.0); CREATININE 1.33 mg/dL (0.55-1.30); POTASSIUM 4.9 mmol/L (3.5-5.1)
[2019-04-22 14:54] LABS: PLATELET COUNT (AUTO) 753 K/uL (130-430)
[2019-04-22 14:58] LABS: ALBUMIN 3.2 g/dL (3.4-4.8); TOTAL BILIRUBIN 0.3 mg/dL (0.0-1.0)
[2019-04-22] MEDS ORDERED: NACL 0.9% 1,000 ML IV ONE (15:15)
[2019-04-22 17:45] VITALS: BP_SYST 137
== END 2019-04-22 17:45 | disposition left against medical advice (07) ==
LOC: SED 13:12
DX: R22.0 Localized swelling, mass and lump, head (principal); J39.8 Other specified diseases of upper respiratory tract; N17.9 Acute kidney failure, unspecified; D47.3 Essential (hemorrhagic) thrombocythemia; I10 Essential (primary) hypertension; J45.909 Unspecified asthma, uncomplicated; Z88.0 Allergy status to penicillin; Z79.899 Other long term (current) drug therapy
CPT/HCPCS: 36415; 70486; 70490; 80053; 83605; 85025; 87040; 96365; 96372; 96375; 99285; J0171; J1200; J1956; J2930; J7030

== ENCOUNTER 2022-06-23 14:34 | Inpatient (IN) | payer BC, MEDICARE, OTHER ==
[~2022-06-23] VITALS: Ht 160 cm; Wt 44.9 kg
[2022-06-23 14:42] VITALS: BP_SYST 111
[2022-06-23] MEDS ORDERED: KETOROLAC TROMETHAMINE 15 MG VIAL IVP ONE (15:15)
[2022-06-23] MEDS ORDERED: MORPHINE 4 MG INJ. 4 MG/ML VIAL IVP ONE (15:15)
[2022-06-23] MEDS ORDERED: NACL 0.9% 1,000 ML IV ONE (15:15)
[2022-06-23] MEDS ORDERED: ONDANSETRON HCL 4 MG/2 ML VIAL IVP ONE ×2 (15:15→18:15)
[2022-06-23 15:55] LABS: WHITE BLOOD COUNT (AUTO) 7.4 K/uL (4.8-10.8)
[2022-06-23 16:00] LABS: MEAN CORPUSCULAR HEMOGLOBIN 18 pg (27-31); MEAN CORPUSCULAR HGB CONC 29 % (32-36); MEAN CORPUSCULAR VOLUME 63 fL (79.0-98.0); PLATELET COUNT (AUTO) 671 K/uL (130-430); RED BLOOD CELL COUNT(AUTO) 2.29 MIL/uL (4.2-6.2); RED CELL DISTRIBUTION WIDTH 21.9 % (9.0-15.0)
[2022-06-23 16:03] LABS: HEMATOCRIT 14.4 % (36-48); HEMOGLOBIN 4.1 g/dL (12.0-16.0)
[2022-06-23 16:09] LABS: ANION GAP 12 (5-15); CALCIUM 7.4 mg/dL (8.4-11.0); CHLORIDE 102 mmol/L (98-107); CREATININE 1.04 mg/dL (0.55-1.30); GLUCOSE 118 mg/dL (70-99); UREA NITROGEN, BLOOD 14 mg/dL (8-21)
[2022-06-23 16:11] LABS: BAND % (MANUAL) 2 % (0-6); BASOPHILS % (MANUAL) 0 % (0-2); EOSINOPHILS % (MANUAL) 0 % (0-7); LYMPHOCYTES % (MANUAL) 8 % (20-46); MONOCYTES % (MANUAL) 12 % (0-11)
[2022-06-23 16:16] LABS: ALANINE AMINOTRANSFERASE 11 U/L (12-78); ALBUMIN 2.3 g/dL (3.4-4.8); ASPARTATE AMINOTRANSFERASE 10 U/L (10-37); TOTAL BILIRUBIN 0.2 mg/dL (0.0-1.0)
[2022-06-23] MEDS ORDERED: MORPHINE 2 MG/ML INJ. SYRINGE IVP ONE (18:15)
[2022-06-23] MEDS ORDERED: ALBUMIN HUMAN 25% 100 ML IV ONE (18:15)
[2022-06-23] MEDS ORDERED: ACETAMINOPHEN 325 MG TABLET PO ONE (18:30)
[2022-06-23] MEDS ORDERED: PANTOPRAZOLE SODIUM 40 MG/VIAL (PROTONIX) IVP ONE (18:30)
[2022-06-23] MEDS ORDERED: DIPHENHYDRAMINE INJ 50 MG/ML VIAL IVP ONE (18:30)
[2022-06-23 21:25] VITALS: BP_SYST 112
[2022-06-23] MEDS ORDERED: ALBUTEROL SULFATE 0.083% 2.5 MG/3 ML VIAL.NEB INH PRN (22:15)
[2022-06-23] MEDS ORDERED: LORazepam 2 MG/ML VIAL IVP PRN (22:15)
[2022-06-23] MEDS ORDERED: IPRATROPIUM BROM 0.5 MG/2.5 ML VIAL.NEB (ATROVENT) INH PRN (22:15)
[2022-06-23] MEDS ORDERED: ONDANSETRON HCL 4 MG/2 ML VIAL IVP PRN (22:15)
[2022-06-23 22:30] LABS: BILIRUBIN,URINE NEGATIVE (NEGATIVE); BLOOD, URINE NEGATIVE (NEGATIVE); CLARITY/URINE CLEAR (CLEAR); COLOR,URINE YELLOW (YELLOW); GLUCOSE,URINE NEGATIVE (NEGATIVE); KETONES,URINE NEGATIVE (NEGATIVE); LEUKOCYTE ESTERASE ,URINE NEGATIVE (NEGATIVE); NITRITE, URINE NEGATIVE (NEGATIVE); PH,URINE 7.5 (5.0-8.0); PROTEIN URINE NEGATIVE (NEGATIVE); UROBILINOGEN,URINE 0.2 (0.2-1.0)
[2022-06-24 00:22] VITALS: BP_SYST 117
[2022-06-24 01:33] VITALS: BP_SYST 117
[2022-06-24] MEDS: D5/0.45 NS 1,000 ML IV SCH ×3 (02:24→17:35)
[2022-06-24 04:48] LABS: BASOPHILS # (AUTO) 0.1 K/uL (0.0-0.2); BASOPHILS % (AUTO) 1.2 % (0.0-2.0); EOSINOPHILS # (AUTO) 0.1 K/uL (0.0-0.4); EOSINOPHILS % (AUTO) 1.8 % (0.0-4.0); HEMATOCRIT 24.1 % (36-48); HEMOGLOBIN 7.8 g/dL (12.0-16.0); LYMPHOCYTES # (AUTO) 1.7 K/uL (1.0-5.5); LYMPHOCYTES % (AUTO) 23.3 % (20.5-51.5); MEAN CORPUSCULAR HEMOGLOBIN 23 pg (27-31); MEAN CORPUSCULAR HGB CONC 33 % (32-36); MEAN CORPUSCULAR VOLUME 72 fL (79.0-98.0); MONOCYTES # (AUTO) 0.8 K/uL (0.0-1.0); MONOCYTES % (AUTO) 10.6 % (1.7-9.3); NEUTROPHILS # (AUTO) 4.7 K/uL (1.8-7.7); NEUTROPHILS % (AUTO) 63.1 % (40.0-70.0); PLATELET COUNT (AUTO) 535 K/uL (130-430); RED BLOOD CELL COUNT(AUTO) 3.37 MIL/uL (4.2-6.2); RED CELL DISTRIBUTION WIDTH 25.5 % (9.0-15.0); WHITE BLOOD COUNT (AUTO) 7.4 K/uL (4.8-10.8)
[2022-06-24 05:08] LABS: PROTHROMBIN TIME 10.3 SECS (9.5-12.5)
[2022-06-24 05:44] LABS: ALANINE AMINOTRANSFERASE 14 U/L (12-78); ALBUMIN 2.7 g/dL (3.4-4.8); ANION GAP 9 (5-15); ASPARTATE AMINOTRANSFERASE 21 U/L (10-37); CALCIUM 7.9 mg/dL (8.4-11.0); CHLORIDE 104 mmol/L (98-107); CREATININE 1.05 mg/dL (0.55-1.30); GLUCOSE 90 mg/dL (70-99); LIPASE 66 U/L (73-393); PHOSPHORUS 4.1 mg/dL (2.7-4.5); TOTAL BILIRUBIN 1.4 mg/dL (0.0-1.0); UREA NITROGEN, BLOOD 14 mg/dL (8-21)
[2022-06-24] MEDS ORDERED: SIMETHICONE 40 MG/0.6 ML ML ONE (07:32)
[2022-06-24] MEDS: MIDAZOLAM HCL 5 MG/5 ML VIAL ONE ×3 (08:10→08:14)
[2022-06-24] MEDS: fentaNYL CITRATE/PF 100 MCG/2 ML AMP ONE ×3 (08:10→08:17)
[2022-06-24] MEDS ORDERED: SUCRALFATE 1 GM/10 ML UDC GT ONE (08:45)
[2022-06-24] MEDS ORDERED: DIATR MEGLU/DIATRIZ SOD 30 ML SOLUTION PO ONE (08:48)
[2022-06-24] MEDS: PANTOPRAZOLE SODIUM 40 MG/VIAL (PROTONIX) IVP SCH (09:00)
[2022-06-24] MEDS ORDERED: SUCRALFATE 1 GM/10 ML UDC GT SCH (17:00)
[2022-06-24] MEDS: SUCRALFATE 1 GM/10 ML UDC PO SCH (17:34)
[2022-06-24 20:34] VITALS: BP_SYST 126
[2022-06-24 20:35] VITALS: BP_SYST 126
[2022-06-25] MEDS: D5/0.45 NS 1,000 ML IV SCH (04:58)
[2022-06-25 05:28] LABS: TOTAL IRON BIND. CAPACITY 374 ug/dL (250-450)
[2022-06-25 05:30] LABS: ALANINE AMINOTRANSFERASE 14 U/L (12-78); ANION GAP 11 (5-15); ASPARTATE AMINOTRANSFERASE 17 U/L (10-37); BASOPHILS # (AUTO) 0.1 K/uL (0.0-0.2); BASOPHILS % (AUTO) 0.7 % (0.0-2.0); CALCIUM 8.4 mg/dL (8.4-11.0); CHLORIDE 104 mmol/L (98-107); EOSINOPHILS # (AUTO) 0.2 K/uL (0.0-0.4); GLUCOSE 73 mg/dL (70-99); HEMATOCRIT 28.4 % (36-48); HEMOGLOBIN 9.1 g/dL (12.0-16.0); LIPASE 65 U/L (73-393); LYMPHOCYTES # (AUTO) 1.8 K/uL (1.0-5.5); LYMPHOCYTES % (AUTO) 20.4 % (20.5-51.5); MEAN CORPUSCULAR HEMOGLOBIN 23 pg (27-31); MEAN CORPUSCULAR HGB CONC 32 % (32-36); MEAN CORPUSCULAR VOLUME 73 fL (79.0-98.0); MONOCYTES # (AUTO) 0.7 K/uL (0.0-1.0); MONOCYTES % (AUTO) 8.3 % (1.7-9.3); NEUTROPHILS # (AUTO) 6.1 K/uL (1.8-7.7); PLATELET COUNT (AUTO) 682 K/uL (130-430); RED BLOOD CELL COUNT(AUTO) 3.91 MIL/uL (4.2-6.2); RED CELL DISTRIBUTION WIDTH 26.6 % (9.0-15.0); RETICULOCYTE COUNT 2.4 % (0.5-1.5); TOTAL BILIRUBIN 0.6 mg/dL (0.0-1.0); UREA NITROGEN, BLOOD 9 mg/dL (8-21); WHITE BLOOD COUNT (AUTO) 8.8 K/uL (4.8-10.8)
[2022-06-25] MEDS: SUCRALFATE 1 GM/10 ML UDC PO SCH ×2 (06:26→17:01)
[2022-06-25 07:14] LABS: NEUTROPHILS % (AUTO) 68.6 % (40.0-70.0)
[2022-06-25 07:53] VITALS: BP_SYST 120
[2022-06-25] MEDS: PANTOPRAZOLE SODIUM 40 MG/VIAL (PROTONIX) IVP SCH (08:47)
[2022-06-25] MEDS ORDERED: SUCR1TAB2 PO (10:50)
[2022-06-25] MEDS ORDERED: PRO40 PO (10:50)
[2022-06-25 11:34] VITALS: BP_SYST 107
[2022-06-25 16:38] VITALS: BP_SYST 114
[2022-06-25] MEDS ORDERED: SOD FERRIC GLUC COMPLEX/SUC 125 MG in NS 100 ML IV SCH (17:00)
[2022-06-25] MEDS ORDERED: ZOLPIDEM TARTRATE 5 MG TABLET PO PRN (17:30)
[2022-06-25 19:00] VITALS: BP_SYST 114
[2022-06-25 20:00] VITALS: BP_SYST 114
[2022-06-26 00:50] VITALS: BP_SYST 117
[2022-06-26] MEDS ORDERED: ACETAMINOPHEN 325 MG TABLET PO PRN (04:30)
[2022-06-26 06:12] LABS: BASOPHILS % (AUTO) 0.5 % (0.0-2.0); EOSINOPHILS # (AUTO) 0.2 K/uL (0.0-0.4); EOSINOPHILS % (AUTO) 2.9 % (0.0-4.0); HEMATOCRIT 27.7 % (36-48); HEMOGLOBIN 8.8 g/dL (12.0-16.0); LYMPHOCYTES # (AUTO) 1.4 K/uL (1.0-5.5); LYMPHOCYTES % (AUTO) 17.8 % (20.5-51.5); MEAN CORPUSCULAR HEMOGLOBIN 23 pg (27-31); MEAN CORPUSCULAR HGB CONC 32 % (32-36); MEAN CORPUSCULAR VOLUME 73 fL (79.0-98.0); MONOCYTES # (AUTO) 0.8 K/uL (0.0-1.0); MONOCYTES % (AUTO) 10.6 % (1.7-9.3); NEUTROPHILS # (AUTO) 5.3 K/uL (1.8-7.7); NEUTROPHILS % (AUTO) 68.2 % (40.0-70.0); PLATELET COUNT (AUTO) 603 K/uL (130-430); RED BLOOD CELL COUNT(AUTO) 3.77 MIL/uL (4.2-6.2); RED CELL DISTRIBUTION WIDTH 27.1 % (9.0-15.0); WHITE BLOOD COUNT (AUTO) 7.8 K/uL (4.8-10.8)
[2022-06-26 06:36] LABS: ALANINE AMINOTRANSFERASE 11 U/L (12-78); ALBUMIN 2.7 g/dL (3.4-4.8); ANION GAP 9 (5-15); ASPARTATE AMINOTRANSFERASE 14 U/L (10-37); CALCIUM 8.4 mg/dL (8.4-11.0); CHLORIDE 107 mmol/L (98-107); GLUCOSE 84 mg/dL (70-99); TOTAL BILIRUBIN 0.5 mg/dL (0.0-1.0); UREA NITROGEN, BLOOD 8 mg/dL (8-21)
[2022-06-26] MEDS: SUCRALFATE 1 GM/10 ML UDC PO SCH (07:05)
[2022-06-26 08:00] VITALS: BP_SYST 122
[2022-06-26] MEDS: PANTOPRAZOLE SODIUM 40 MG/VIAL (PROTONIX) IVP SCH (09:57)
[2022-06-26 11:57] VITALS: BP_SYST 122
[2022-06-26 12:06] LABS: FOLATE (FOLIC ACID) 6.3 ng/mL (>3.0)
[2022-06-26 12:57] VITALS: BP_SYST 111
[2022-06-27] MEDS ORDERED: APIX5TAB PO (15:45)
[2022-06-28 01:06] LABS: CEA 3.7 ng/mL (0.0-4.7)
== END 2022-06-26 14:04 | disposition home or self-care (01) | DRG 383 ==
LOC: SED 14:34 → STU 17:45 → SMU 06-25 11:02
PROVIDERS: ADMIT Preventive Medicine Preventive Medicine/Occupational Environmental Medicine; ATTEND Preventive Medicine Preventive Medicine/Occupational Environmental Medicine
PROC: 30233N1 Transfusion of Nonautologous Red Blood Cells into Peripheral Vein, Percutaneous Approach (ICD-10-PCS; 2022-06-23)
PROC: 0DB78ZX Excision of Stomach, Pylorus, Via Natural or Artificial Opening Endoscopic, Diagnostic (ICD-10-PCS; 2022-06-24)
PROC: 0DB98ZX Excision of Duodenum, Via Natural or Artificial Opening Endoscopic, Diagnostic (ICD-10-PCS; principal; 2022-06-24 07:30)
DX: K26.9 Duodenal ulcer, unspecified as acute or chronic, without hemorrhage or perforation (principal); E43 Unspecified severe protein-calorie malnutrition; Z68.1 Body mass index [BMI] 19.9 or less, adult; Z20.822 Contact with and (suspected) exposure to COVID-19; D64.9 Anemia, unspecified; D75.839 Thrombocytosis, unspecified; K25.9 Gastric ulcer, unspecified as acute or chronic, without hemorrhage or perforation; E88.09 Other disorders of plasma-protein metabolism, not elsewhere classified; R53.81 Other malaise; F17.200 Nicotine dependence, unspecified, uncomplicated; I10 Essential (primary) hypertension; J45.909 Unspecified asthma, uncomplicated; K59.00 Constipation, unspecified; Z90.49 Acquired absence of other specified parts of digestive tract; Z90.710 Acquired absence of both cervix and uterus; Z88.0 Allergy status to penicillin
CPT/HCPCS: 36415; 43239; 71045; 76376; 80053; 81003; 82378; 82607; 82728; 82746; 83540; 83550; 83690; 83735; 83880; 84100; 84484; 85007; 85025; 85027; 85044; 85610-TC; 85730-TC; 86301; 86886; 86900; 86901; 86920; 87081; 88305; 88312; 88313; 93005; 94760; 96374; 96375; 97110-GP; 97116-GP; 97530-GP; 99291; 99292; C9113; G0378; J1200; J1885; J2250; J2270; J2405; J2916; J3010; P9021; Q9964; Q9967

== ENCOUNTER 2022-06-27 13:21 | Emergency (ER) | payer OTHER ==
[~2022-06-27] VITALS: Ht 160 cm; Wt 39.5 kg
[~2022-06-27 13:21] MED LIST changes: +PRO40 PO; +SUCR1TAB2 PO
--- NOTE | 2022-06-27 13:25 | NUR ---
Pt brought by self, A&Ox4, pt presents to ER with redness, pain on R upper arm after an IV was d/c yesterday, pt afebrile, VSS, no discharge noted.
[2022-06-27 13:30] VITALS: BP_SYST 102
[2022-06-27 15:00] LABS: BASOPHILS # (AUTO) 0.1 K/uL (0.0-0.2); EOSINOPHILS # (AUTO) 0.2 K/uL (0.0-0.4); HEMATOCRIT 30.3 % (36-48); HEMOGLOBIN 9.4 g/dL (12.0-16.0); LYMPHOCYTES # (AUTO) 0.9 K/uL (1.0-5.5); LYMPHOCYTES % (AUTO) 9.7 % (20.5-51.5); MEAN CORPUSCULAR HEMOGLOBIN 23 pg (27-31); MEAN CORPUSCULAR HGB CONC 31 % (32-36); MEAN CORPUSCULAR VOLUME 75 fL (79.0-98.0); MONOCYTES # (AUTO) 0.9 K/uL (0.0-1.0); MONOCYTES % (AUTO) 9.5 % (1.7-9.3); NEUTROPHILS # (AUTO) 7.3 K/uL (1.8-7.7); NEUTROPHILS % (AUTO) 77.8 % (40.0-70.0); PLATELET COUNT (AUTO) 647 K/uL (130-430); RED BLOOD CELL COUNT(AUTO) 4.05 MIL/uL (4.2-6.2); RED CELL DISTRIBUTION WIDTH 28.5 % (9.0-15.0); WHITE BLOOD COUNT (AUTO) 9.3 K/uL (4.8-10.8)
[2022-06-27 15:09] LABS: ANION GAP 11 (5-15); CALCIUM 8.8 mg/dL (8.4-11.0); CHLORIDE 105 mmol/L (98-107); CREATININE 0.97 mg/dL (0.55-1.30); GLUCOSE 97 mg/dL (70-99); UREA NITROGEN, BLOOD 12 mg/dL (8-21)
--- NOTE | 2022-06-27 15:10 | NUR ---
Dr Luna evaluating patient in the triage room
[2022-06-27 15:13] LABS: ALANINE AMINOTRANSFERASE 14 U/L (12-78); ASPARTATE AMINOTRANSFERASE 12 U/L (10-37); C-REACTIVE PROTEIN QUANT 1.6 mg/dL (0-0.5); TOTAL BILIRUBIN 0.4 mg/dL (0.0-1.0)
[2022-06-27] MEDS ORDERED: APIX5TAB PO (15:45)
[2022-06-27 16:16] VITALS: BP_SYST 102
--- NOTE | 2022-06-27 16:16 | NUR ---
Patient given written and verbal discharge instructions and verbalizes understanding. ER MD discussed with patient the results and treatment provided. Patient in stable condition. ID arm band removed. Rx of Eliquis given. Patient educated on pain management and to follow up with PMD. Pain Scale 2/10. Opportunity for questions provided and answered. Medication side effect fact sheet provided.
== END 2022-06-27 16:16 | disposition home or self-care (01) ==
LOC: SED 13:21
DX: I82.621 Acute embolism and thrombosis of deep veins of right upper extremity (principal); J44.9 Chronic obstructive pulmonary disease, unspecified; I10 Essential (primary) hypertension; Z88.0 Allergy status to penicillin; Z79.899 Other long term (current) drug therapy
CPT/HCPCS: 36415; 80053; 83605; 85025; 86140; 93971; 99284